=== PATIENT | female | born 1985 | race Two or more races ===

== ENCOUNTER → 2019-05-15 | Outpatient (CLI) | payer OTHER | END | disposition home or self-care (01) | LOC: PRENATAL 11:00 | DX: O34.42 Maternal care for other abnormalities of cervix, second trimester (principal); O99.89 Other specified diseases and conditions complicating pregnancy, childbirth and the puerperium ==

== ENCOUNTER 2019-09-03 14:45 | Inpatient (IN) | payer OTHER ==
[~2019-09-03] VITALS: Ht 165.1 cm; Wt 2.7 kg
[2019-10-02] MEDS ORDERED: PRENATAL TABLE1 EAC1 PO (02:53)
[2019-10-02] MEDS ORDERED: FOLIC ACID20 MG PO (02:54)
[2019-10-04] MEDS ORDERED: MAXFE CAPLET1 EACH PO (11:57)
[2019-10-04] MEDS ORDERED: MOTRIN IB200 M1 PO (11:57)
== END 2019-10-04 13:27 | disposition home or self-care (01) | DRG 788 ==
LOC: O/R 14:45 → OB/GYN 09-29 14:45 → LDR 10-02 02:52 → OB/GYN 10-02 02:52
PROVIDERS: ADMIT Obstetrics & Gynecology
PROC: 3E033VJ Introduction of Other Hormone into Peripheral Vein, Percutaneous Approach (ICD-10-PCS; 2019-10-02)
PROC: 4A1HXCZ Monitoring of Products of Conception, Cardiac Rate, External Approach (ICD-10-PCS; 2019-10-02)
PROC: 10D00Z1 Extraction of Products of Conception, Low, Open Approach (ICD-10-PCS; principal; 2019-10-02 12:00)
DX: O82 Encounter for cesarean delivery without indication (principal); O61.0 Failed medical induction of labor; Z3A.40 40 weeks gestation of pregnancy; Z37.0 Single live birth